=== PATIENT | female | born 1940 | race African-American/Black ===

== ENCOUNTER 2017-05-27 20:30 | Emergency (ER) | payer MEDICARE ==
--- NOTE | 2017-05-27 22:06 | RADIOLOGY REPORT (SQ) ---
EXAM DESCRIPTION: CHEST PA/LAT COMPLETED DATE/TIME: 05/27/2017 9:19 pm REASON FOR STUDY: cough COMPARISON: None. EXAM PARAMETERS: NUMBER OF VIEWS: two views TECHNIQUE: Digital Frontal and Lateral radiographic views of the chest acquired. RADIATION DOSE: NA LIMITATIONS: none FINDINGS: LUNGS AND PLEURA: No opacities, masses or pneumothorax. No pleural effusion. MEDIASTINUM AND HILAR STRUCTURES: No masses or contour abnormalities. HEART AND VASCULAR STRUCTURES: Heart normal size. No evidence for failure. BONES: No acute findings. HARDWARE: Sternotomy wires are in place along with valvular prosthesis. OTHER: No other significant finding. IMPRESSION: NO SIGNIFICANT RADIOGRAPHIC FINDING IN THE CHEST. TECHNICAL DOCUMENTATION: JOB ID: [id number] [employer]- All Rights Reserved
[2017-05-27 22:16] LABS: ABSOLUTE BASOPHILS # (AUTO) 0.1 10^3/uL (0.0-0.2); ABSOLUTE EOSINOPHILS # (AUTO) 0.2 10^3/uL (0.0-0.6); ABSOLUTE LYMPHOCYTES (AUTO) 1.9 10^3/uL (0.5-4.7); ABSOLUTE MONOCYTES (AUTO) 0.7 10^3/uL (0.1-1.4); ABSOLUTE NEUT (AUTO) 5.1 10^3/uL (1.7-8.2); BASOPHILS % (AUTO) 0.7 % (0-2); HEMATOCRIT 37.2 % (36.0-47.0); HEMOGLOBIN 12.2 g/dL (12.0-15.5); HGB HCT DIFFERENCE -0.6; LYMPHOCYTES % (AUTO) 23.7 % (13-45); MEAN CORPUSCULAR HEMOGLOBIN 28.4 pg (27.0-33.4); MEAN CORPUSCULAR HGB CONC 32.8 g/dL (32.0-36.0); MEAN CORPUSCULAR VOLUME 87 fl (80-97); MONOCYTES % (AUTO) 9.4 % (3-13); RED BLOOD COUNT 4.29 10^6/uL (3.72-5.28); RED CELL DISTRIBUTION WIDTH 13.4 % (11.5-14.0); SEGMENTED NEUTROPHILS % (AUTO) 64.2 % (42-78); WHITE BLOOD COUNT 7.9 10^3/uL (4.0-10.5)
[2017-05-27 22:24] LABS: PROTHROMBIN TIME 23.7 SEC (11.4-15.4)
[2017-05-27 22:32] LABS: ALANINE AMINOTRANSFERASE 31 U/L (9-52); ALBUMIN 4.1 g/dL (3.5-5.0); ALKALINE PHOSPHATASE 100 U/L (38-126); ANION GAP 10 (5-19); ASPARTATE AMINO TRANSFERASE 38 U/L (14-36); BILIRUBIN,DIRECT 0.4 mg/dL (0.0-0.4); BILIRUBIN,TOTAL 0.6 mg/dL (0.2-1.3); BLOOD UREA NITROGEN 15 mg/dL (7-20); CALCIUM 9.2 mg/dL (8.4-10.2); CARBON DIOXIDE 28 mmol/L (22-30); CHLORIDE 104 mmol/L (98-107); CREATININE RESULT 1.08 mg/dL (0.52-1.25); GLUCOSE 96 mg/dL (75-110); POTASSIUM 4.7 mmol/L (3.6-5.0); SODIUM 141.7 mmol/L (137-145); TOTAL PROTEIN 7.7 g/dL (6.3-8.2)
[2017-05-28] MEDS ORDERED: IPRATROPIUM/ALBUTEROL 0.5-2.5 MG/3 ML AMPUL NEB ONE (00:36)
[2017-05-28] MEDS ORDERED: HYDROCODONE/ACETAMINOPHEN 5-325 MG TABLET PO ONE (00:36)
--- NOTE | 2017-05-28 01:06 | ER Document Report ---
ED Respiratory Problem - General Mode of Arrival: Ambulatory Information source: Patient TRAVEL OUTSIDE OF THE [place] IN LAST 30 DAYS: No - HPI Patient complains to provider of: Cough Onset: Other - Refer to HPI notes Associated symptoms: Congestion, Cough, Wheezing <ILYA RICH - Last Filed: 05/28/17 01:16> <SARAH MARIE - Last Filed: 05/28/17 01:29> - General Chief Complaint: Cough Stated Complaint: COUGHING BLOOD Time Seen by Provider: 05/28/17 00:24 Notes: Patient is a 77 year old female presenting to the emergency department for cough with bloody streaks. Patient states she is visiting from [place] and she got here on 05/20/2017. Patient's symptoms were onset on 05/23/2017. Patient has a productive cough, congestion, and some wheezing. Patient had the bloody streaks in her cough today. Patient is on Coumadin for a mitral valve replacement. Patient has no known allergies. (ILYA RICH) - Related Data Allergies/Adverse Reactions: No Known Allergies Allergy (Unverified 05/27/17 20:44) Past Medical History - General Information source: Patient - Social History Smoking Status: Never Smoker Cigarette use (# per day): No Frequency of alcohol use: None Drug Abuse: None Family History: None Patient has suicidal ideation: No Patient has homicidal ideation: No - Past Medical History Cardiac Medical History: Reports: Hx Hypertension Past Surgical History: Reports: Hx Cardiac Surgery - mitral valve replacement <ILYA RICH - Last Filed: 05/28/17 01:16> Review of Systems - Review of Systems Constitutional: No symptoms reported EENT: See HPI, Nose congestion Cardiovascular: No symptoms reported Respiratory: See HPI, Cough, Wheezing Gastrointestinal: No symptoms reported Genitourinary: No symptoms reported Female Genitourinary: No symptoms reported Musculoskeletal: No symptoms reported Skin: No symptoms reported Hematologic/Lymphatic: No symptoms reported Neurological/Psychological: No symptoms reported -: Yes All other systems reviewed and negative <ILYA RICH - Last Filed: 05/28/17 01:16> Physical Exam - Vital signs Interpretation: Hypertensive <ILYA RICH - Last Filed: 05/28/17 01:16> <SARAH MARIE - Last Filed: 05/28/17 01:29> - Vital signs Vitals: Temp Pulse Resp BP Pulse Ox 97.9 F 84 20 185/79 H 98 05/27/17 20:40 05/27/17 20:40 05/27/17 20:40 05/27/17 20:40 05/27/17 20:40 - Notes Notes: GENERAL: Alert, interacts well. No acute distress. HEAD: Normocephalic, atraumatic. EYES: Pupils equal, round, and reactive to light. Extraocular movements intact. ENT: Nasal sinus congestion. Oral mucosa moist, tongue midline. NECK: Full range of motion. Supple. Trachea midline. LUNGS: Productive cough, wheezing, no respiratory distress. HEART: Regular rate and rhythm. No murmurs, gallops, or rubs. ABDOMEN: Obese. Soft, non-tender. Non-distended. Bowel sounds present in all 4 quadrants. EXTREMITIES: Moves all 4 extremities spontaneously. Trace pretibial edema bilaterally. NEUROLOGICAL: Alert and oriented x3. Normal speech. PSYCH: Normal affect, normal mood. SKIN: Warm, dry, normal turgor. No rashes or lesions noted. (ILYA RICH) Course - Laboratory Result Diagrams: 05/27/17 21:45 05/27/17 21:45 <ILYA RICH - Last Filed: 05/28/17 01:16> - Laboratory Result Diagrams: 05/27/17 21:45 05/27/17 21:45 <SARAH MARIE - Last Filed: 05/28/17 01:29> - Vital Signs Vital signs: Temp Pulse Resp BP Pulse Ox 97.9 F 84 20 185/79 H 98 05/27/17 20:40 05/27/17 20:40 05/27/17 20:40 05/27/17 20:40 05/27/17 20:40 - Laboratory Laboratory results interpreted by me: 05/27/17 05/27/17 21:45 21:45 PT 23.7 H Est GFR (Non-Af Amer) 49 L AST 38 H Discharge <ILYA RICH - Last Filed: 05/28/17 01:16> <SARAH MARIE - Last Filed: 05/28/17 01:29> - Discharge Clinical Impression: Bronchitis with bronchospasm, Hemoptysis, Anticoagulated on Coumadin Condition: Stable Disposition: HOME, SELF-CARE Additional Instructions: Bronchitis with Bronchospasm (Wheezing): You have bronchitis with bronchospasm (wheezing). Sometimes people develop wheezing with a chest cold. This occurs either because of an underlying tendency toward asthma or because the virus itself irritates the bronchial tubes. This irritation causes cough, shortness of breath, and wheezing. Emergency treatment of bronchospasm may include adrenaline shots or bronchodilator aerosol. You may feel lightheaded and have a rapid pulse for an hour or two. Rest and get plenty of fluids. At home, we'll treat you with a bronchodilator inhaler. Corticosteroids may be required for some patients. Until you recover, avoid chemical fumes, dusts, pollens, and exercising in very cold or dry air. If you smoke, stop now! Most cases of bronchitis get better without antibiotics. We prescribe antibiotics when we believe bacteria are damaging your airways, or if there's high risk the bronchitis will worsen into pneumonia. Increase your fluid intake. A cool mist humidifier may make your lungs more comfortable. An expectorant (cough medicine that loosens phlegm) can help. Repeated episodes of bronchitis and bronchospasm may result in lung damage -- for example, chronic bronchitis, recurrent pneumonias, or emphysema. If you develop a fever, increased wheezing, chest pain, or severe shortness of breath, you should contact the doctor immediately. USE THE INHALER--2 PUFFS EVERY 4 HOURS FOR WHEEZING NEEDED. DRINK PLENTY OF FLUIDS. START THE PREDNISONE WEDNESDAY AFTERNOON. TAKE THE HYDROCODONE MEDICATION DISPENSED AND PRESCRIBED FOR COUGH IF NEEDED. FOLLOW UP WITH A LOCAL MEDICAL DOCTOR IF NOT IMPROVING. RETURN TO THE EMERGENCY ROOM IF ANY NEW OR WORSENING SYMPTOMS. Prescriptions: Hydrocodone/Acetaminophen [Hydrocodon-Acetaminophen 5-325] 1 each PO Q4 PRN #15 tablet PRN Reason: Prednisone [Deltasone 10 mg Tablet] 10 mg PO ASDIR PRN #21 tablet PRN Reason: Scribe Attestation: 05/28/17 01:29 I personally performed the services described in the documentation, reviewed and edited the documentation which was dictated to the scribe in my presence, and it accurately records my words and actions. (SARAH MARIE) Scribe Documentation - Scribe Written by Ramy:: Ramy Salguero, 05/28/2017 1:07 acting as scribe for :: Emilia <ILYA RICH - Last Filed: 05/28/17 01:16>
[2017-05-28] MEDS ORDERED: HYDROCODONE/ACETAMINOPHEN 5-325 MG 6 TAB/DSPK PO PRN (01:22)
[2017-05-28] MEDS ORDERED: ALBUTEROL SULFATE HFA (90 MCG/PUFF) 8 GM MDI (1 MDI/ER DISP) IH ONE (01:22)
[2017-05-28] MEDS ORDERED: ALBUTEROL SULFATE 0.083% NEB 2.5 MG/3 ML AMPUL NEB ONE (01:24)
[2017-05-28] MEDS ORDERED: PREDNISONE 20 MG TABLET PO ONE (01:24)
[2017-05-28 02:08] VITALS: BP 155/74
== END 2017-05-28 02:05 | disposition home or self-care (01) ==
LOC: ER 20:30
DX: J40 Bronchitis, not specified as acute or chronic (principal); J98.01 Acute bronchospasm; R04.2 Hemoptysis; R05 Cough; Z79.01 Long term (current) use of anticoagulants
CPT/HCPCS: 94640 ×2; 99283; 36415; 85025; 85610; 80053; 71020; A9270 ×5; J3490; J7512; J7620